=== PATIENT | male | born 1975 | race Caucasian/White ===

== ENCOUNTER 2017-06-28 13:08 | Day surgery (SDC) | payer BC ==
[~2017-06-28] VITALS: Ht 180.3 cm; Wt 109.1 kg
[2017-06-28] MEDS ORDERED: FLOMAX 0.40.4 MG/CAP PO (13:28)
[2017-06-28] MEDS ORDERED: EFFEXOR-XR150 MG PO (13:28)
[2017-06-28 13:29] VITALS: BP 128/90; PULSE 75; TEMP 97.6
[2017-06-28] MEDS ORDERED: NORCO 325 MG-51 TAB PO (15:43)
[2017-06-28] MEDS ORDERED: MOTRIN 600600 MG/TAB PO (15:44)
[2017-06-28] MEDS ORDERED: COLACE 100100 MG/CAP PO (15:44)
[2017-06-28 17:00] VITALS: BP 105/63; PULSE 87; TEMP 98.3
[2017-06-28 17:15] VITALS: BP 102/64; PULSE 83
[2017-06-28 17:30] VITALS: BP 104/63; PULSE 85
[2017-06-28 17:45] VITALS: BP 101/61; PULSE 62
[2017-06-28 18:15] VITALS: BP 102/61; PULSE 67
== END 2017-06-28 22:10 | disposition home or self-care (01) ==
LOC: SDCO 13:08 → SURG 17:00 → SDCO 22:10
DX: K80.10 Calculus of gallbladder with chronic cholecystitis without obstruction (principal); G47.30 Sleep apnea, unspecified; N31.9 Neuromuscular dysfunction of bladder, unspecified; K80.50 Calculus of bile duct without cholangitis or cholecystitis without obstruction
CPT/HCPCS: OP; J0694; J1100; J1170; J2405; J2704; J3010; J7120; Q9967

== ENCOUNTER 2017-09-23 06:18 | Day surgery (SDC) | payer BC ==
[~2017-09-23] VITALS: Ht 180.3 cm; Wt 109.3 kg
[2017-09-23] VITALS (7 sets, daily range): BP systolic 114–131; BP diastolic 85–103; PULSE 78–104; TEMP 97.8–98.2
[~2017-09-23 06:18] MED LIST: COLACE 100100 MG/CAP PO; EFFEXOR-XR150 MG PO; FLOMAX 0.40.4 MG/CAP PO; MOTRIN 600600 MG/TAB PO; NORCO 325 MG-51 TAB PO
== END 2017-09-23 08:55 | disposition home or self-care (01) ==
LOC: SDCO 06:18
DX: K92.1 Melena (principal); K64.1 Second degree hemorrhoids
CPT/HCPCS: J2250; J2405; J3010; J7030